=== PATIENT | male | born 1970 | race Caucasian/White ===

== ENCOUNTER 2024-09-18 20:28 | Emergency (ER) | payer BC, SELFPAY ==
[2024-09-18 20:28] VITALS: BMI 30.5
[2024-09-18 20:52] VITALS: BP 149/84; PULSE 102; RESP 18; TEMP 37.2; O2SAT 99
--- NOTE | 2024-09-18 20:57 | XR_ITS ---
Examination: Abdomen sonogram, Limited Date and time of exam: September 18, 2024 2125 hrs. Indications: Right upper abdominal pain and vomiting beginning 2 days ago Technique: Real-time scott scale transabdominal sonographic images of the upper abdomen obtained. Findings: Gallbladder sludge negative for gallstones, negative for cholecystitis Common bile duct 0.22 cm not enlarged, common bile duct measurement is mislabeled on the preliminary film No common bile duct stones Pancreatic head 2.8 cm Liver 17.7 cm lobular contour fatty infiltration no focal liver lesions Normal hepatopedal portal venous flow Patent IVC Impression: Gallbladder sludge, negative for cholelithiasis, negative for cholecystitis Mild hepatomegaly primary hepatocellular disease versus cirrhosis
--- NOTE | 2024-09-18 20:58 | PD.EDRME ---
Rapid Medical Screening Exam RME Arrival date/time: 09/18/24 20:28 54-year-old male presents emergency department complaining of right upper quadrant abdominal pain with nausea and vomiting that is been ongoing since this past Wednesday. Chief Complaint: Abdominal Pain Time Seen by Provider: 09/18/24 20:53 Vital signs: Vital Signs Temperature 98.9 F 09/18/24 20:52 Pulse Rate 102 H 09/18/24 20:52 Respiratory Rate 18 09/18/24 20:52 Blood Pressure 149/84 H 09/18/24 20:52 Pulse Oximetry (%) 99 09/18/24 20:52 Oxygen Delivery Method Room Air 09/18/24 20:52 Vital signs reviewed by provider: Yes
[2024-09-18] MEDS: ONDANSETRON ODT 4 MG TABRAP PO (21:12)
[2024-09-18] MEDS: KETOROLAC INJ 60 MG/2 ML VIAL 30 MG IM (21:12)
[2024-09-18 21:23] LABS: Basophils # (Auto) 0.1 Thou/mm3 (0.0-0.2); Basophils % (Auto) 0 % (0-2.5); Eosinophils # (Auto) 8.1 Thou/mm3 (0.0-0.5); Eosinophils % (Auto) 43 % (0-10); Hematocrit 48.1 % (41.0-53.0); Hemoglobin 16.3 g/dL (13.5-16.0); Immature Granulocytes % (Auto) 1 % (0-0); Immature Granulocytes Auto 0.09 Thou/mm3 (0.00-0.00); Lymphocytes % (Auto) 5 % (10-50); Mean Corpuscular HGB Conc 33.9 g/dl (31.0-37.0); Mean Corpuscular Volume 83 fL (80-100); Monocytes # (Auto) 1.7 Thou/mm3 (0.0-0.8); Monocytes % (Auto) 9 % (0-12); Neutrophils % (Auto) 42 % (37-80); Nucleated Red Blood Cell % 0 /100 WBC (0); Platelet Count 194 Thou/mm3 (140-440); RDW Standard Deviation 40.9 fL (35.1-43.9); Red Blood Count 5.83 Miln/mm3 (4.50-5.90); White Blood Count 18.8 Thou/mm3 (3.8-10.6)
[2024-09-18 21:56] LABS: Alanine Aminotransferase 157 U/L (10-49); Albumin, Serum 4.8 gm/dL (3.5-5.0); Albumin/Globulin Ratio 1.5 (1.2-2.2); Alkaline Phosphatase 151 U/L (46-116); Anion Gap 15 (7-16); Aspartate Amino Transferase 119 U/L (0-34); BUN/Creatinine Ratio 16 Ratio (12-20); Bilirubin,Total 1.5 mg/dL (0.3-1.2); Blood Urea Nitrogen 13 mg/dL (9-23); Calcium 10.1 mg/dL (8.3-10.6); Calcium (Corrected) 10.1 mg/dL (8.5-10.1); Carbon Dioxide 17.7 mMol/L (20.0-31.0); Chloride 103 mMol/L (98-107); Creatinine (Component) 0.8 mg/dL (0.6-1.3); Globulin 3.3 gm/dL (2.3-3.5); Glucose 191 mg/dL (74-106); Lipase 25 U/L (12-53); Osmolality,Calculated 277 (275-295); Potassium 4.1 mMol/L (3.4-5.1); Sodium 136 mMol/L (136-145); Total Protein 8.1 gm/dL (5.7-8.2); eGFR > 60 See Note
[2024-09-18 22:02] LABS: Collection Type, Urine Clean Catch
[2024-09-18 22:09] LABS: Bacteria,Urine Rare; Bilirubin,Urine Negative (Negative); Blood,Urine Negative (Negative); Clarity,Urine Clear (Clear/Hazy); Color,Urine Yellow (Lt Yel-Yel); Culture Indicated,Urine Not Indicated; Glucose, Urine 4+ (Negative); Ketones,Urine 4+ (Negative); Leukocyte Esterase,Urine Negative (Negative); Nitrite,Urine Negative (Negative); Protein,Urine 1+ (Neg - Trace); RBC,Urine 3 /hpf (0-3); Specific Gravity,Urine 1.039 (1.001-1.035); Squamous Epithelial Cell,Urine < 1 /hpf (0-5); Urobilinogen,Urine Negative mg/dL (0.0-1.0); WBC,Urine 3 /hpf (0-5)
--- NOTE | 2024-09-18 22:43 | EDNOTE_ITS ---
ED Abdominal Pain RME/HPI General Chief Complaint: Abdominal Pain Stated complaint: RUQ PAIN Time seen by provider: 09/18/24 20:53 Arrival date/time: 09/18/24 20:28 54-year-old male presents emergency department complaining of right upper quadrant abdominal pain with nausea and vomiting that is been ongoing since this past Wednesday. Patient denies any fever, chills, diarrhea, or any other associated symptom. Source: patient Mode of arrival: ambulatory Limitations: no limitations RME / HPI RME / HPI narrative: 09/18/24 20:28 54-year-old male presents emergency department complaining of right upper quadrant abdominal pain with nausea and vomiting that is been ongoing since this past Wednesday. Related Data Home Medications ?Medication ?Instructions ?Recorded ?Confirmed acetaminophen 325 mg tablet 650 mg PO QID PRN Pain 05/05/24 05/05/24 ascorbic acid (vitamin C) 500 mg 500 mg PO BID 05/05/24 05/05/24 tablet docusate sodium 100 mg capsule 100 mg PO BID 05/05/24 05/05/24 doxycycline hyclate 100 mg capsule 100 mg PO BID 05/05/24 05/05/24 hydrocodone 5 mg-acetaminophen 325 1 tab PO Q6H PRN Pain 05/05/24 05/05/24 mg tablet insulin glargine 100 unit/mL 22 unit subcut QPM 05/05/24 05/05/24 subcutaneous solution insulin lispro 100 unit/mL 5 unit subcut USEASDIRECTD 05/05/24 05/05/24 subcutaneous solution losartan 50 mg tablet 50 mg PO QDAY 05/05/24 05/09/24 metformin 1,000 mg tablet 1,000 mg PO BID 05/05/24 05/05/24 zinc sulfate 220 mg capsule 220 mg PO DAILY 05/05/24 05/05/24 Previous Rx's ?Medication ?Instructions ?Recorded atorvastatin 40 mg tablet 40 mg PO HS 30 days #30 tabs 03/23/24 hydrocodone 5 mg-acetaminophen 325 1 tab PO BID PRN pain #10 tabs 09/18/24 mg tablet ondansetron 4 mg disintegrating 4 mg PO Q8H PRN nausea and 09/18/24 tablet vomiting #10 tabs Allergies Allergy/AdvReac Type Severity Reaction Status Date / Time No Known Allergies Allergy Verified 09/18/24 20:30 Review of Systems Review of Systems Systems Reviewed: All systems reviewed, normal except as documented Constitutional Constitutional: Reports system reviewed and no additional complaints, except as documented, Denies body ache(s), Denies chills and Denies fever(s) Eyes Eyes: Reports system reviewed and no additional complaints, except as documented and Denies change in vision ENT Ears, Nose, Mouth, and Throat: Reports system reviewed and no additional co mplaints, except as documented, Denies disequilibrium, Denies dizziness, Denies sore throat and Denies vertigo Cardiovascular Cardiovascular: Reports system reviewed and no additional complaints, except as documented, Denies chest pain and Denies dyspnea Respiratory Respiratory: Reports system reviewed and no additional complaints, except as documented, Denies chest congestion, Denies cough and Denies dyspnea Gastrointestinal Gastrointestinal: Reports system reviewed and no additional complaints, except as documented, Reports abdominal pain, Reports nausea and Reports vomiting Musculoskeletal Musculoskeletal: Reports system reviewed and no additional complaints, except as documented, Denies abnormal gait and Denies arthralgias Integumentary/Breasts Skin/Breast: Reports system reviewed and no additional complaints, except as documented, Denies erythema, Denies rash and Denies wounds Neurologic Neurologic: Reports system reviewed and no additional complaints, except as documented, Denies abnormal gait, Denies disequilibrium, Denies dizziness and Denies vertigo Past Medical History Past Medical History NEUROLOGIC: Negative Neurological Disorders or Seizures CARDIAC: Positive Cardiac Disorders, Hypercholesterolemia and Hypertension; Negative Congestive Heart Failure RESPIRATORY: Positive Asthma (child); Negative Chronic Obstructive Pulmonary Disease (COPD) GASTROINTESTINAL: Negative Gastrointestinal Disorders or Hepatitis GENITOURINARY: Negative Genitourinary Disorders or Renal Disease ENDOCRINE: Positive Endocrine Disorders and Diabetes Mellitus Type 2; Negative Diabetes Mellitus Type 1 HEMATOLOGIC: Negative Blood Disorders OTHER HISTORY: Positive Hospitalization (surgery, appy), Chicken Pox and Cancer; Negative Autoimmune Disease, Shingles, Blood Transfusions or Anesthesia Reactions Family History FAMILY HISTORY: Positive Family Cardiac Disorders; Negative Family Psychiatric Problems, Family Respiratory Disorders, Family Gastrointestinal Problems, Family Cancer, Family Surgery or Family Anesthesia Reaction Surgical History SURGICAL: Positive Abdominal Surgery Social History SMOKING STATUS: Never smoker SUBSTANCE USE: does not use ED Exam General Limitations: Present no limitations General appearance: Present alert and in no apparent distress Head Head exam: Present atraumatic Eye Eye exam: Present normal appearance, PERRL and EOMI ENT ENT exam: Present normal exam, normal oropharynx and mucous membranes moist Neck Neck exam: Present normal inspection, full ROM and trachea midline Chest Chest inspection: Present normal inspection and symmetric chest wall rise Respiratory Respiratory exam: Present normal lung sounds bilaterally Cardiovascular Cardiovascular exam: Present regular rate, normal rhythm and normal heart sounds Abdominal Exam Abdominal exam: Present soft, tenderness and normal bowel sounds Abdominal tenderness: Present RUQ Extremities Exam Extremities exam: Present normal inspection and full ROM Back Exam Back exam: Present normal inspection and full ROM Neurological Exam Neurological exam: Present alert, oriented X3 and CN II-XII intact Psychiatric Psychiatric exam: Present normal affect and normal mood Skin Skin exam: Present warm, dry, intact and normal color Course Quality Measures none Orders Category Date Time Status US gall bladder Stat Exams 09/18/24 20:57 Completed CBC Stat Lab 09/18/24 21:08 Completed CMP [Comprehensive Metabolic Panel] Stat Lab 09/18/24 21:08 Completed Lipase Stat Lab 09/18/24 21:08 Completed Urinalysis, C/S if Indicated Stat Lab 09/18/24 22:00 Completed Ketorolac Inj [Toradol Inj] Med 09/18/24 20:57 Discontinued 30 mg IM X1 ONE Ondansetron Odt [Zofran Odt] Med 09/18/24 20:57 Discontinued 4 mg PO X1 ONE Vital Signs Vital signs: Vital Signs Temperature 98.9 F 09/18/24 20:52 Pulse Rate 102 H 09/18/24 20:52 Respiratory Rate 18 09/18/24 20:52 Blood Pressure 149/84 H 09/18/24 20:52 Pulse Oximetry (%) 99 09/18/24 20:52 Oxygen Delivery Method Room Air 09/18/24 20:52 99% room air within normal limits Abdominal Pain MDM [facility] Narrative MDM Narrative:: 54-year-old male presents emergency department complaining of right upper quadrant abdominal pain with nausea and vomiting that is been ongoing since this past Wednesday. Patient denies any fever, chills, diarrhea, or any other associated symptom. CBC was remarkable for leukocytosis 18.8. CMP elevated total bili 1.8, AST 119, ALT 157, lipase within normal limits. Ultrasound gallbladder findings: Findings: Gallbladder sludge negative for gallstones, negative for cholecystitis Common bile duct 0.22 cm not enlarged, common bile duct measurement is mislabeled on the preliminary film No common bile duct stones Pancreatic head 2.8 cm Liver 17.7 cm lobular contour fatty infiltration no focal liver lesions Normal hepatopedal portal venous flow Patent IVC Dr. Solis consulted recommends discharging patient and having them follow-up with her in his office for possible surgical intervention on Wednesday. Patient appears nontoxic and is hemodynamically stable. Patient instructed to follow-up with Dr. Solis made aware Dr. Lynne's office will be contacting him for appointment. Patient discharged on pain medication and nausea medication. Patient instructed to return to emergency department immediately for any fever, chills, or any worsening symptoms. Patient data External records reviewed:: [facility] previous records Clinical information provided by:: patient Social determinants that could affect healthcare access:: none Patient has the following chronic illnesses:: See chart How is presenting disease/condition affected by chronic disease/condition?: uneffected by Evaluation data The following diagnostics were reviewed and interpreted by me:: lab results and radiology exam(s) Lab and/or radiology exams considered but not ordered:: Ordered Interpretation Summary: Interpreted by me Medications / Prescriptions Medications or Prescriptions considered but not ordered:: Ordered Medication administrations:: Medication Administration History Discontinued Medications Ketorolac Tromethamine (Ketorolac Inj 60 Mg/2 Ml Vial) 30 mg IM X1 ONE Stop: 09/18/24 20:58 Last Admin: 09/18/24 21:12 Dose: 30 mg Documented By: OA Ondansetron HCl (Ondansetron Odt 4 Mg Tabrap) 4 mg PO X1 ONE; Protocol Stop: 09/18/24 20:58 Last Admin: 09/18/24 21:12 Dose: 4 mg Documented By: OA Given Consultations Consultation(s) initiated? (list below): Yes Consultation #1 (Physician, Specialty, Details): Dr. Solis Diagnosis Differential diagnosis abdominal pain: abdominal pain, acute appendicitis, calculus of kidney, constipation, diverticulitis, endometriosis, gastroenteritis, pancreatitis, small bowel obstruction and other Most likely diagnosis given after review of the tests above:: Gallbladder sludge Admission Indicated Admission indicated?: not indicated Admission Request Was there a request for admission?: No Disposition Plan Disposition Plan: Discharge Discharge Attestation Discharge Attestation: The patient and all family members were given an opportunity to ask questions and understood the discharge instructions. Discharge instructions specifically effects, indications for sooner follow up or return to the emergency department, and the expected course of current diagnosis. Patient condition: Stable Discharge Plan Plan Patient Disposition: HOME (Self Care) Disposition Comment: Stable Prescriptions/Referrals Prescriptions/Med Rec: New hydrocodone-acetaminophen 5-325 mg tablet 1 tab PO BID MDD 2 tabs PRN (Reason: pain) Qty: 10 0RF ondansetron 4 mg tablet,disintegrating 4 mg PO Q8H PRN (Reason: nausea and vomiting) Qty: 10 0RF No Action losartan 50 mg Tablet 50 mg PO QDAY acetaminophen 325 mg Tablet 650 mg PO QID PRN (Reason: Pain) doxycycline hyclate 100 mg Capsule 100 mg PO BID insulin glargine 100 unit/mL Solution 22 unit SUBCUT QPM hydrocodone-acetaminophen 5-325 mg Tablet 1 tab PO Q6H PRN (Reason: Pain) ascorbic acid (vitamin C) 500 mg Tablet 500 mg PO BID metformin 1,000 mg Tablet 1,000 mg PO BID docusate sodium 100 mg Capsule 100 mg PO BID insulin lispro 100 unit/mL Solution 5 unit SUBCUT USEASDIRECTD zinc sulfate 220 mg Capsule 220 mg PO DAILY atorvastatin 40 mg tablet 40 mg PO HS 30 Days Qty: 30 2RF Referrals: Erlinda Solis MD [Physician] - 09/22/24 9:00 am (Dr. Lynne's office will be contacting you for appointment.) Problem List Clinical Impression: Gallbladder sludge Patient/Caregiver Discharge Instructions Additional Instructions: Take medication for pain as needed. Follow-up with Dr. Lynne as discussed and expect phone call from her office. Return to the emergency department for any worsening symptoms or as needed. Print Language: Kyrgyz Stand Alone Forms: Shannan Award Info., Patient Portal Info Letter PA/CLEANER OPERATOR Supervising Physician PA/CLEANER OPERATOR Supervising Physician: Dr. Huber
--- NOTE | 2024-09-19 14:36 | PD.SURCONS ---
HPI Consult details History of present illness: 54M with HLD, DMII who presented to ER with RUQ pain, nausea/vomiting, findings consistent with biliary colic Review of Systems Review of Systems ROS Unobtainable: All systems reviewed & no additional complaints except as documented ENT Ears, Nose, Mouth, and Throat: Denies disequilibrium, Denies dizziness and Denies vertigo Musculoskeletal Musculoskeletal: Denies abnormal gait Neurologic Neurologic: Reports system reviewed and no additional complaints, except as documented, Denies abnormal gait, Denies disequilibrium, Denies dizziness and Denies vertigo Meds Home Medications and Allergies Home Medications ?Medication ?Instructions ?Recorded ?Confirmed ?Type acetaminophen 325 mg tablet 650 mg PO QID PRN Pain 05/05/24 05/05/24 History ascorbic acid (vitamin C) 500 mg 500 mg PO BID 05/05/24 05/05/24 History tablet docusate sodium 100 mg capsule 100 mg PO BID 05/05/24 05/05/24 History doxycycline hyclate 100 mg capsule 100 mg PO BID 05/05/24 05/05/24 History hydrocodone 5 mg-acetaminophen 325 1 tab PO Q6H PRN Pain 05/05/24 05/05/24 History mg tablet insulin glargine 100 unit/mL 22 unit subcut QPM 05/05/24 05/05/24 History subcutaneous solution insulin lispro 100 unit/mL 5 unit subcut USEASDIRECTD 05/05/24 05/05/24 History subcutaneous solution losartan 50 mg tablet 50 mg PO QDAY 05/05/24 05/09/24 History metformin 1,000 mg tablet 1,000 mg PO BID 05/05/24 05/05/24 History zinc sulfate 220 mg capsule 220 mg PO DAILY 05/05/24 05/05/24 History Allergies Allergy/AdvReac Type Severity Reaction Status Date / Time No Known Allergies Allergy Verified 09/18/24 20:30 Exam Vital Signs Temp Pulse Resp BP Pulse Ox O2 Del Method 98.9 F 102 H 18 149/84 H 99 Room Air 09/18/24 20:52 09/18/24 20:52 09/18/24 20:52 09/18/24 20:52 09/18/24 20:52 09/18/24 20:52 Constitutional Constitutional: no acute distress Routine Respiratory Exam Respiratory: Present no resp distress Routine Abdominal Exam Abdominal: Present soft; Absent tenderness or distended Results Results: Laboratory Laboratory results: results reviewed Results: Imaging US - abdomen: report reviewed Assessment & Plan Plan 54M with HTN, DMII presenting with signs and symptoms and biliary colic Follow up as outpt
== END 2024-09-18 23:55 | disposition home or self-care (01) ==
LOC: SERX 09-19 01:06
PROVIDERS: Emergency Provider Emergency Medicine; PCP Physician Assistant
DX: K82.8 Other specified diseases of gallbladder (principal)
CPT/HCPCS: 36415; 76705; 80053; 81001; 83690; 85025; 96372; 99284; J1885; Q0162

== ENCOUNTER 2024-09-20 13:38 | Outpatient (AMB) | payer BC, SELFPAY ==
[2024-09-20 13:55] VITALS: BP 98/66; PULSE 89; RESP 18; TEMP 36.3; O2SAT 98; BMI 30.8
--- NOTE | 2024-09-20 13:55 | GSCOFFNT_ITS ---
Vital Signs - [facility] 09/20/24 13:55 Height 1.83 m Height Method Stated Weight 103.192 kg Weight Measurement Method Standing Scale BMI 30.8 BP 98/66 Blood Pressure Source Automatic Cuff Blood Pressure Location Right Upper Arm Position Sitting Respiration 18 Pulse 89 Pulse Source Monitor Temp 97.4 F Temp Source Temporal Artery Scan Pulse Oximetry (%) 98 Oxygen Delivery Method Room Air Med/Allergies Allergies & Medications Allergies No Known Allergies Allergy (Verified 09/20/24 13:56) Medication Reconciliation atorvastatin 40 mg tablet 40 mg PO HS 30 days #30 tabs 03/23/24 [Rx Confirmed 09/20/24] acetaminophen 325 mg tablet 650 mg PO QID PRN Pain 05/05/24 [History Confirmed 09/20/24] ascorbic acid (vitamin C) 500 mg tablet 500 mg PO BID 05/05/24 [History Confirmed 09/20/24] docusate sodium 100 mg capsule 100 mg PO BID 05/05/24 [History Confirmed 09/20/24] doxycycline hyclate 100 mg capsule 100 mg PO BID 05/05/24 [History Confirmed 09/20/24] hydrocodone 5 mg-acetaminophen 325 mg tablet 1 tab PO Q6H PRN Pain 05/05/24 [History Confirmed 09/20/24] insulin glargine 100 unit/mL subcutaneous solution 22 unit subcut QPM 05/05/24 [History Confirmed 09/20/24] insulin lispro 100 unit/mL subcutaneous solution 5 unit subcut USEASDIRECTD 05/05/24 [History Confirmed 09/20/24] losartan 50 mg tablet 50 mg PO QDAY 05/05/24 [History Confirmed 09/20/24] metformin 1,000 mg tablet 1,000 mg PO BID 05/05/24 [History Confirmed 09/20/24] zinc sulfate 220 mg capsule 220 mg PO DAILY 05/05/24 [History Confirmed 09/20/24] hydrocodone 5 mg-acetaminophen 325 mg tablet 1 tab PO BID PRN pain #10 tabs 09/18/24 [Rx Confirmed 09/20/24] ondansetron 4 mg disintegrating tablet 4 mg PO Q8H PRN nausea and vomiting #10 tabs 09/18/24 [Rx Confirmed 09/20/24] ibuprofen 800 mg tablet 800 mg PO Q8H PRN pain #30 tabs 09/20/24 [Rx] MA Intake Visit Data Collection New Patient or Established: Established Patient (seen at [facility] within 3 years) Reason for Visit:: ER FOLLOW UP Pain Present Currently: Yes Pain Location: Abdomen Pain scale:: 7 Pain Scale Used: [employer]arker/Numerical Bench Hand Machine Required: No PCP or OBGYN visit in last 3 months: Yes Hx Now: No Do You Feel Safe at Home: Yes Authorities Contacted: N/A Smoking Status Smoking Status: Never smoker Immunization / Flu Flu Vaccine in the Last 12 Months: No Flu Vaccine Exclusion Criteria: No Exclusion Criteria Past Medical History Past Medical History NEUROLOGIC: Negative Neurological Disorders or Seizures CARDIAC: Positive Cardiac Disorders, Hypercholesterolemia and Hypertension; Negative Congestive Heart Failure RESPIRATORY: Positive Asthma (child); Negative Chronic Obstructive Pulmonary Disease (COPD) GASTROINTESTINAL: Negative Gastrointestinal Disorders or Hepatitis GENITOURINARY: Negative Genitourinary Disorders or Renal Disease ENDOCRINE: Positive Endocrine Disorders and Diabetes Mellitus Type 2; Negative Diabetes Mellitus Type 1 HEMATOLOGIC: Negative Blood Disorders OTHER HISTORY: Positive Hospitalization (surgery, appy), Chicken Pox and Cancer; Negative Autoimmune Disease, Shingles, Blood Transfusions or Anesthesia Reactions Family History FAMILY HISTORY: Positive Family Cardiac Disorders; Negative Family Psychiatric Problems, Family Respiratory Disorders, Family Gastrointestinal Problems, Family Cancer, Family Surgery or Family Anesthesia Reaction Surgical History SURGICAL: Positive Abdominal Surgery Social History SMOKING STATUS: Smoking status: Never smoker ALCOHOL: Alcohol Intake: Never HOUSING: Housing: Long-Term LIVES WITH: Lives With: Alone HPI HPI Narrative 54M referred from ER for symptomatic cholelithiasis. Pt reports pain began the d ay before presentation and has decreased somewhat but has not fully abated; he states it is severe in the RUQ and associated with nausea and anorexia, feeling similar to when he had appendicitis in 2015. Workup in ER consistent with biliary colic with no signs of cholecystitis PMH: HTN, HLD, DMII, BCC of back PSHx: Appendectomy, toe amputations, removal of SCC of back and skin graft Meds: No antiplt or anticoagulation Allergies: NKDA Social hx: Nonsmoker ROS Review of Systems Systems Reviewed: All systems reviewed, normal except as documented Objective/Exam General General Appearance: alert, cooperative and well groomed Resp Respiratory exam: Absent respiratory distress Abdominal Abdominal exam: Present soft; Absent distention or tenderness Results Labs, US reviewed Assessment & Plan Diagnosis / Problem List (1) Symptomatic cholelithiasis: Status: Acute Assessment & Plan: 54M with HTN, HLD, DMII presenting with signs and symptoms of symptomatic cholelithiasis. I explained benefits/risks of surgery including need for conversion to open, bleeding, infection, hernia, and injury to nearby structures requiring further procedures or surgery (which would require transfer to another hospital). Pt expressed understanding and agrees to proceed Office Procedures GNS Level of Care Nursing/Assessment Patient Status: Established Patient Nursing Assessment/Reassesment: Medication Reconciliation, Update PMH in EMR and Vital Signs Coordination of Care: Complex Care and Chronic Disease 1-5, Education Complex Pt/Fam, Consent,records obtained, informed consent, 1 Ins Authorization, Results/Orders obtained and Staff clarify orders Established Patient Charge Established Patient Point Assignment: 110 Established Patient Point Charge: EP Level 3 (80-115) Patient Portal Questionaires Social History Living Situation History Housing: Long-Term Tobacco History Smoking Status: Never smoker Alcohol History Alcohol Intake: Never Domestic Abuse History Do You Feel Safe at Home: Yes Review of Systems Report any current symptoms Only answer those that you have currently: Past Medical History Past Medical History Have you ever been diagnosed with any of the following: Neurological Problems Seizures: No Cardiology Problems Hypercholesterolemia: Yes Congestive Heart Failure: No Hypertension: Yes Respiratory Problems Chronic Obstructive Pulmonary Disease (COPD): No Asthma: Yes (child) Stomache/Intestinal Problems Hepatitis: No Genital/Urinary Problems Renal Disease: No Endocrine Problems Diabetes Mellitus Type 1: No Diabetes Mellitus Type 2: Yes Other Problems Hospitalization: Yes (surgery, appy) Autoimmune Disease: No Shingles: No Blood Transfusions: No Anesthesia Reactions: No Chicken Pox: Yes Cancer: Yes
== END 2024-09-20 14:13 | disposition home or self-care (01) ==
LOC: HODSRG 13:38
PROVIDERS: PCP Physician Assistant; Referring Provider Physician Assistant; Supervising Provider Surgery; Visit Provider Surgery
DX: K80.20 Calculus of gallbladder without cholecystitis without obstruction (principal)
CPT/HCPCS: 99213; G0463

== ENCOUNTER 2024-09-22 13:49 | Inpatient (IN) | payer BC, SELFPAY ==
[2024-09-22 13:58] VITALS: BP 118/72; PULSE 95; RESP 20; TEMP 36.6; O2SAT 97; BMI 29.8
--- NOTE | 2024-09-22 14:05 | PD.EDABDPN ---
ED Abdominal Pain RME/HPI General Chief Complaint: Recheck/Abnormal Lab/Rx Stated complaint: WBC's are high, sent by Dr Solis Time seen by provider: 09/22/24 13:58 Arrival date/time: 09/22/24 13:49 Source: patient, RN notes reviewed and old records reviewed Mode of arrival: ambulatory Limitations: no limitations RME / HPI RME / HPI narrative: 54yom presents to ED for 6-day history of RUQ abdominal pain. Patient was evaluated in ED at symptom onset, diagnosed with gallbladder sludge and referred to general surgery. Patient saw Dr. Solis in clinic 09/20. Surgery was tentatively scheduled for Wednesday however, repeat labs this morning showed persistent leukocytosis, wbc 18.3 (wbc 18.8 on 09/18). Dr. Solis referred to ED for possible admit and gilmer this weekend. Patient reports mild pain at this time. No vomiting the past 5 days, no diarrhea the past 4 days. No fever, sob or cp reported. Related Data Home Medications ?Medication ?Instructions ?Recorded ?Confirmed ascorbic acid (vitamin C) 500 mg 500 mg PO BID 05/05/24 09/22/24 tablet losartan 50 mg tablet 50 mg PO QDAY 05/05/24 09/22/24 metformin 1,000 mg tablet 1,000 mg PO BID 05/05/24 09/22/24 zinc sulfate 220 mg capsule 220 mg PO DAILY 05/05/24 09/22/24 empagliflozin 25 mg tablet 25 mg PO QAM 09/22/24 09/22/24 (Jardiance) Previous Rx's ?Medication ?Instructions ?Recorded atorvastatin 40 mg tablet 40 mg PO HS 30 days #30 tabs 03/23/24 ibuprofen 800 mg tablet 800 mg PO Q8H PRN pain #30 tabs 09/20/24 Allergies Allergy/AdvReac Type Severity Reaction Status Date / Time No Known Allergies Allergy Verified 09/22/24 11:01 Review of Systems Review of Systems Systems Reviewed: All systems reviewed, normal except as documented Constitutional Constitutional: Denies chills and Denies fever(s) Cardiovascular Cardiovascular: Denies chest pain and Denies dyspnea Respiratory Respiratory: Denies dyspnea Gastrointestinal Gastrointestinal: Reports abdominal pain, Denies loose stools, Reports nausea and Denies vomiting Past Medical History Past Medical History NEUROLOGIC: Negative Neurological Disorders or Seizures CARDIAC: Positive Cardiac Disorders, Hypercholesterolemia and Hypertension; Negative Congestive Heart Failure RESPIRATORY: Positive Asthma (child); Negative Chronic Obstructive Pulmonary Disease (COPD) GASTROINTESTINAL: Negative Gastrointestinal Disorders or Hepatitis GENITOURINARY: Negative Genitourinary Disorders or Renal Disease ENDOCRINE: Positive Endocrine Disorders and Diabetes Mellitus Type 2; Negative Diabetes Mellitus Type 1 HEMATOLOGIC: Negative Blood Disorders OTHER HISTORY: Positive Hospitalization (surgery, appy), Chicken Pox and Cancer; Negative Autoimmune Disease, Shingles, Blood Transfusions or Anesthesia Reactions Family History FAMILY HISTORY: Positive Family Cardiac Disorders; Negative Family Psychiatric Problems, Family Respiratory Disorders, Family Gastrointestinal Problems, Family Cancer, Family Surgery or Family Anesthesia Reaction Surgical History SURGICAL: Positive Abdominal Surgery Social History SMOKING STATUS: Never smoker SUBSTANCE USE: does not use ED Exam General Limitations: Present no limitations General appearance: Present alert and in no apparent distress Head Head exam: Present atraumatic and normocephalic Eye Eye exam: Present normal appearance, PERRL and EOMI ENT ENT exam: Present normal exam and mucous membranes moist Neck Neck exam: Present normal inspection and full ROM Chest Chest inspection: Present normal inspection and symmetric chest wall rise Respiratory Respiratory exam: Present normal lung sounds bilaterally; Absent respiratory distress Cardiovascular Cardiovascular exam: Present regular rate and normal rhythm Abdominal Exam Abdominal exam: Present soft and tenderness (Mild, RUQ); Absent distention, guarding or rebound Extremities Exam Extremities exam: Present normal inspection and full ROM Back Exam Back exam: Absent CVA tenderness (R) or CVA tenderness (L) Neurological Exam Neurological exam: Present alert and oriented X3 Psychiatric Psychiatric exam: Present normal affect and normal mood Skin Skin exam: Present warm, dry, intact and normal color Course Course Course Narrative: 1400: Spoke to Dr. Lynne. Requests repeat ultrasound to rule out cholecystitis. Most likely will need hydration and gilmer this weekend. 1548: Dr. Solis updated on GB ultrasound. Requests admission to general surgery service, plan for gilmer. No antibiotics requested at this time. Quality Measures none Orders Category Date Time Status COVID-19 Screening Questionnaire NOW Care 09/22/24 15:50 Active Decision to Admit X1 Care 09/22/24 15:50 Active Consult to General Surgery Stat Cons 09/22/24 15:50 Ordered US gall bladder Stat Exams 09/22/24 14:06 Completed Sodium Chloride 0.9% 1000 ml [Ns] 1,000 ml Med 09/22/24 14:06 Discontinued IV 999 mls/hr Vital Signs Vital signs: Vital Signs Temperature 97.9 F 09/22/24 13:58 Pulse Rate 95 09/22/24 13:58 Respiratory Rate 20 09/22/24 13:58 Blood Pressure 118/72 09/22/24 13:58 Pulse Oximetry (%) 97 09/22/24 13:58 Oxygen Delivery Method Room Air 09/22/24 13:58 Abdominal Pain MDM MDM Narrative MDM Narrative:: 54yom presents to ED for 6-day history of RUQ abdominal pain. Patient was evaluated in ED at symptom onset, diagnosed with gallbladder sludge and referred to general surgery. Patient saw Dr. Solis in clinic 09/20. Surgery was tentatively scheduled for Wednesday however, repeat labs this morning showed persistent leukocytosis, wbc 18.3 (wbc 18.8 on 09/18). Dr. Solis referred to ED for possible admit and gilmer this weekend. Patient reports mild pain at this time. No vomiting the past 5 days, no diarrhea the past 4 days. No fever, sob or cp reported. Dr. Solis to admit for gilmer. Patient updated on plan of care. Patient data External records reviewed:: [facility] previous records (ED visit 09/18/2024 for abdominal pain) Clinical information provided by:: patient Social determinants that could affect healthcare access:: none Patient has the following chronic illnesses:: Hypertension, diabetes How is presenting disease/condition affected by chronic disease/condition?: uneffected by Evaluation data The following diagnostics were reviewed and interpreted by me:: radiology exam(s) Lab and/or radiology exams considered but not ordered:: CBC, CMP, lipase: Labs from this morning were reviewed Interpretation Summary: Gallbladder US: no gallstones per my read Medications / Prescriptions Medications or Prescriptions considered but not ordered:: No antibiotics recommended at this time Medication administrations:: Medication Administration History Acetaminophen (Acetaminophen 325 Mg Tablet) 650 mg PO Q6H PRN PRN Reason: PAIN SCALE 1-3 (mild Stop: 10/22/24 16:08 Sodium Chloride (Ns) 1,000 mls @ 75 mls/hr IV .[id number] CHIQUI Stop: 10/22/24 16:14 Last Admin: 09/22/24 16:52 Dose: 75 mls/hr Documented By: FC Ketorolac Tromethamine (Ketorolac Inj 30 Mg/Ml Vial) 15 mg IVP Q6H PRN PRN Reason: PAIN SCALE 4-6 (Moderate Stop: 09/27/24 16:08 Ondansetron HCl (Ondansetron Inj 2 Mg/Ml Inj 2 Ml) 4 mg IV Q6H PRN; Protocol PRN Reason: NAUSEA OR VOMITING Stop: 10/22/24 16:14 Discontinued Medications Sodium Chloride (Ns) 1,000 mls @ 999 mls/hr IV .Q1H1M ONE Stop: 09/22/24 15:06 Last Infusion: 09/22/24 16:44 Dose: Infused Documented By: Admin: 09/22/24 15:35 Dose: 999 mls/hr Documented By: AM Potassium Chloride (Potassium Chloride 20 Meq Tabcr) 40 meq PO X1 ONE Stop: 09/22/24 16:13 Last Admin: 09/22/24 16:51 Dose: 40 meq Documented By: FC Above medication administered in ED Consultations Consultation(s) initiated? (list below): Yes Consultation #1 (Physician, Specialty, Details): General surgery: Dr. Solis Diagnosis Differential diagnosis abdominal pain: other (Cholelithiasis, cholecystitis, retained stone, gallbladder sludge, biliary colic) Most likely diagnosis given after review of the tests above:: Biliary colic Admission Indicated Admission indicated?: indicated Admission Request Was there a request for admission?: Yes Admission Attestation Admission request attestation: Discussed case with [] from Hospitalist service regarding admission. Discussed patients ED course, exam findings, labs, and radiology results. The Hospitalist [agrees,declines] to accept the patient for admission. Disposition Plan Disposition Plan: Admit Discharge Plan Plan Patient Disposition: Admit Acute Care w/in Hospital Patient condition on transfer: Stable Problem List Clinical Impression: Biliary colic NOEMI Supervising Physician NOEMI Supervising Physician: Kaycee
--- NOTE | 2024-09-22 14:06 | XR_ITS ---
Examination: Abdomen sonogram, Limited Date and time of exam: September 22, 2024 1453 hours INDICATIONS: Onset right upper abdominal pain beginning one week ago Technique: Real-time scott scale transabdominal sonographic images of the upper abdomen obtained. Findings: Negative for gallstones Gallbladder wall 0.40 cm no edema Common bile duct 0.3 cm Pancreatic head 2.2 cm Hepatomegaly 18.6 cm fatty infiltration mildly irregular contour no focal liver lesions Normal hepatopedal portal venous flow Patent IVC IMPRESSION: Negative for cholelithiasis Gallbladder wall 6.40 cm, consider HIDA scan or MRCP follow-up as clinically warranted Moderate hepatomegaly fatty infiltration, suspect primary hepatocellular disease, no focal liver lesions
[2024-09-22] MEDS: SODIUM CHLORIDE 0.9% 1000 ML 1,000 ML 999 ML IV (15:35)
[2024-09-22 16:07] VITALS: BP 146/80; PULSE 87; RESP 18; TEMP 36.7; O2SAT 99
[2024-09-22] MEDS: POTASSIUM CHLORIDE 20 mEq TABCR 40 MEQ PO (16:51)
[2024-09-22] MEDS: SODIUM CHLORIDE 0.9% 1000 ML 1,000 ML 75 ML IV (16:52)
--- NOTE | 2024-09-22 17:57 | PC.NURSE ---
REPORT GIVEN TO JAMESON VEGAS
[2024-09-22 18:17] VITALS: BMI 29.8
--- NOTE | 2024-09-22 19:35 | PD.SURHP ---
HPI Date of Admission 09/22/24 16:09 HPI 54M recently referred to me for symptomatic cholelithiasis, plan for laparoscopic cholecystectomy 09/25 however at preop testing patient was noted to appear unwell with abnormal electrolytes consistent with dehydration. Patient reports that the pain has been persistent and he has not been able to eat or drink normally. Workup shows WBC 18, potassium 3.3, BUN 33, with no stones on current ultrasound but mild gallbladder wall thickening PMH: HTN, HLD, DMII, BCC of back PSHx: Appendectomy, toe amputations, removal of SCC of back and skin graft Meds: No antiplt or anticoagulation Allergies: NKDA Social hx: Nonsmoker Review of Systems Review of Systems ROS Unobtainable: All systems reviewed & no additional complaints except as documented Meds Home Medications and Allergies Home Medications ?Medication ?Instructions ?Recorded ?Confirmed ?Type ascorbic acid (vitamin C) 500 mg 500 mg PO BID 05/05/24 09/22/24 History tablet losartan 50 mg tablet 50 mg PO QDAY 05/05/24 09/22/24 History metformin 1,000 mg tablet 1,000 mg PO BID 05/05/24 09/22/24 History zinc sulfate 220 mg capsule 220 mg PO DAILY 05/05/24 09/22/24 History empagliflozin 25 mg tablet 25 mg PO QAM 09/22/24 09/22/24 History (Jardiance) Allergies Allergy/AdvReac Type Severity Reaction Status Date / Time No Known Allergies Allergy Verified 09/22/24 11:01 Exam Vital Signs Temp Pulse Resp BP Pulse Ox O2 Del Method 98.1 F 87 18 146/80 H 99 Room Air 09/22/24 16:07 09/22/24 16:07 09/22/24 16:07 09/22/24 16:07 09/22/24 16:07 09/22/24 16:07 Constitutional Constitutional: no acute distress Routine Respiratory Exam Respiratory: Present no resp distress Routine Abdominal Exam Abdominal: Present soft and tenderness (Mild right upper quadrant tenderness); Absent distended or rebound Results Results: Laboratory Laboratory results: results reviewed Results: Imaging CT scan - abdomen: report reviewed and image reviewed Assessment & Plan Plan 54M with HTN, HLD, DM and recently diagnosed symptomatic cholelithiasis admitted for dehydration. Pending improvement in electrolytes will plan on cholecystectomy this admission Quality Measures Quality Measures none
[2024-09-22 20:00] VITALS: BP 144/80; PULSE 87; RESP 18; TEMP 36.2; O2SAT 97
[2024-09-23] VITALS (7 sets, daily range): BP systolic 94–140; BP diastolic 54–79; PULSE 77–87; RESP 14–18; TEMP 36.3–37; O2SAT 95–97
--- NOTE | 2024-09-23 00:50 | PC.NURSE ---
Unable to complete medication reconciliation due patient not having list of meds and is not able to recall dosage of each medication that he takes.
[2024-09-23 06:20] LABS: Basophils # (Auto) 0.1 Thou/mm3 (0.0-0.2); Basophils % (Auto) 1 % (0-2.5); Eosinophils # (Auto) 0.1 Thou/mm3 (0.0-0.5); Eosinophils % (Auto) 1 % (0-10); Hematocrit 39.4 % (41.0-53.0); Hemoglobin 13.7 g/dL (13.5-16.0); Immature Granulocytes % (Auto) 2 % (0-0); Immature Granulocytes Auto 0.33 Thou/mm3 (0.00-0.00); Lymphocytes # (Auto) 1.2 Thou/mm3 (1.0-4.8); Lymphocytes % (Auto) 8 % (10-50); Mean Corpuscular HGB Conc 34.8 g/dl (31.0-37.0); Mean Corpuscular Volume 80 fL (80-100); Monocytes # (Auto) 1.9 Thou/mm3 (0.0-0.8); Monocytes % (Auto) 12 % (0-12); Neutrophils # (Auto) 12.7 Thou/mm3 (1.8-7.7); Neutrophils % (Auto) 78 % (37-80); Nucleated Red Blood Cell % 0 /100 WBC (0); Platelet Count 215 Thou/mm3 (140-440); RDW Standard Deviation 41.9 fL (35.1-43.9); White Blood Count 16.3 Thou/mm3 (3.8-10.6)
[2024-09-23] MEDS: SODIUM CHLORIDE 0.9% 1000 ML 1,000 ML 75 ML IV (06:22)
[2024-09-23 06:38] LABS: Glucose Estimated Average 137 mg/dL (80-131); Hemoglobin A1C 6.4 % Hgb (4.8-6.0)
[2024-09-23 06:47] LABS: Alanine Aminotransferase 107 U/L (10-49); Albumin, Serum 3.8 gm/dL (3.5-5.0); Albumin/Globulin Ratio 1.5 (1.2-2.2); Alkaline Phosphatase 303 U/L (46-116); Anion Gap 13 (7-16); Aspartate Amino Transferase 64 U/L (0-34); BUN/Creatinine Ratio 23 Ratio (12-20); Bilirubin,Total 0.8 mg/dL (0.3-1.2); Blood Urea Nitrogen 18 mg/dL (9-23); C-Reactive Protein 22.7 mg/dL (0.0-0.9); Calcium 8.6 mg/dL (8.3-10.6); Calcium (Corrected) 8.8 mg/dL (8.5-10.1); Carbon Dioxide 17.1 mMol/L (20.0-31.0); Chloride 102 mMol/L (98-107); Creatinine (Component) 0.8 mg/dL (0.6-1.3); Estimated Creatinine Clearance 127.6 mL/min (>60); Globulin 2.6 gm/dL (2.3-3.5); Glucose 109 mg/dL (74-106); Lipase 33 U/L (12-53); Magnesium 2.3 mg/dL (1.6-2.6); Osmolality,Calculated 267 (275-295); Phosphorous 1.6 mg/dL (2.4-5.1); Potassium 3.2 mMol/L (3.4-5.1); Procalcitonin 1.22 ng/ml (0.0-0.49); Sodium 132 mMol/L (136-145); Thyroid Stimulating Hormone 1.26 uIU/mL (0.55-4.78); Total Protein 6.4 gm/dL (5.7-8.2); eGFR > 60 See Note
[2024-09-23 08:32] LABS: INR 1.1 (0.9-1.3); Partial Thromboplastin Time 32.1 Seconds (22.0-36.0); Prothrombin Time 12.1 Seconds (9.0-12.2)
--- NOTE | 2024-09-23 09:47 | XR_ITS ---
Examination: CT abdomen with intravenous contrast CT pelvis with intravenous contrast 2-D coronal reconstructions 2-D sagittal reconstructions Date and time of exam:September 23, 2024 1015 hrs. Comparison May 30, 2015 Indications: Right upper abdominal pain with diarrhea beginning one week ago. CTDI: vol (mGy) 11.2 DLP: (mGycm) 755 Technique: Multiple axial sections of the abdomen and pelvis have been obtained. 64 slice high-resolution scanner used. 3 mm axial sections have been obtained, post intravenous injection 70 cc [id number] 2-D sagittal, coronal reconstructions obtained. Low dose protocols were performed. One or more of the following dose reduction techniques were used; automated exposure control, adjustment of the mA and/or KV according to patient size, use of iterative reconstruction technique. Findings: Moderate hepatomegaly, liver irregular in contour with fatty infiltration Distended gallbladder with gallbladder wall thickening and marked edema pericholecystic inflammatory change Portosystemic collateral vessels medial to the spleen No pancreatic mass No adrenal mass No hydronephrosis Diffuse wall thickening involving the colon, hepatic colopathy pattern Aorta normal size No bowel obstruction Large amounts of stool in the rectosigmoid with thickening of the rectal wall Mild prostatomegaly No bladder mass Fat-containing inguinal hernias Severe osteopenia Impression: Cirrhosis Acute acalculous cholecystitis, suggest HIDA scan or MRCP follow-up Diffuse colitis, likely hepatic colopathy Large amounts of stool in the rectosigmoid with thickening the rectal wall which may relate to proctitis pattern
--- NOTE | 2024-09-23 09:47 | XR_ITS ---
Examination: AP chest single view Technique one AP portable upright chest single view Exam date and time: September 23, 2024 1133 hrs. Comparison March 18, 2024 Indications: Coughing congestion this week Findings: Normal heart size. Lungs are clear. Osseous structures are intact Impression: No active disease
--- NOTE | 2024-09-23 09:48 | EKG_ITS ---
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
[2024-09-23] MEDS: POT PHOS 15 mMol in NS 250 ML 15 MMOL/250 ML BAG 62.5 MMOL IV ×2 (09:58→15:04)
[2024-09-23] MEDS: KETOROLAC INJ 30 MG/ML VIAL 15 MG IVP ×3 (11:21→23:40)
[2024-09-23] MEDS: INSULIN LISPRO (AdmeLOG) 1 UNIT/0.01 ML UNIT SC ×3 (11:36→21:47)
[2024-09-23] MEDS: CIPROFLOXACIN/D5w 400 MG IVPB 400 MG/200 ML BAG 200 MG IV ×2 (13:12→21:47)
[2024-09-23] MEDS: metroNIDAZOLE/NS 500 MG IVPB 500 MG/100 ML BAG 200 MG IV ×2 (13:12→22:59)
--- NOTE | 2024-09-23 15:28 | PD.SURPROG ---
Documentation for date of: 09/23/24 Subjective Subjective Brief History: 54M recently referred to me for symptomatic cholelithiasis, plan for laparoscopic cholecystectomy 09/25 however at preop testing patient was noted to appear unwell with abnormal electrolytes consistent with dehydration. Patient reports that the pain has been persistent and he has not been able to eat or drink normally. Workup shows WBC 18, potassium 3.3, BUN 33, with no stones on current ultrasound but mild gallbladder wall thickening PMH: HTN, HLD, DMII, BCC of back PSHx: Appendectomy, toe amputations, removal of SCC of back and skin graft Meds: No antiplt or anticoagulation Allergies: NKDA Social hx: Nonsmoker Narrative: Feeling better today with less pain, no nausea, had a BM which was somewhat loose. WBC 16 from 18, CRP and procal elevated, CT showing sequelae of cirrhosis including acalculous cholecystitis and hepatic colopathy Regarding these findings pt confirms he does not drink alcohol, states that he has been taking atorvastatin since 03/2024 with no changes in dose and he has not had any other medication changes recently. He does not have any risk factors for hepatitis, serologies are pending Exam Vital Signs Temp Pulse Resp BP Pulse Ox O2 Del Method 97.5 F 82 14 136/79 H 96 Room Air 09/23/24 12:00 09/23/24 12:00 09/23/24 12:00 09/23/24 12:00 09/23/24 12:00 09/23/24 12:00 Constitutional Constitutional: no acute distress Routine Respiratory Exam Respiratory: Present no resp distress Routine Abdominal Exam Abdominal: Present soft; Absent tenderness or distended Results Results: Laboratory Laboratory results: results reviewed Results: Imaging CT scan - abdomen: report reviewed and image reviewed Assessment & Plan Plan 54M initially referred for symptomatic cholelithiasis, admitted 09/22 after preop labs were concerning for dehydration. Yesterday pt and I spoke about cholecystectomy however given the severity of his symptoms and electrolyte abnormalities I ultimately decided to pursue further workup before proceeding with surgery. CT is indicative of cirrhosis, so I explained that we should hold off on surgery for now as his gallbladder findings appear more to be secondary to cirrhosis rather than a primary problem, and pt is not having symptoms of cholecystitis. I will consult Hepatology Appreciate GI recommendations Holding atorvastatin Cipro/flagyl for cholecystitis/colitis Trend labs
--- NOTE | 2024-09-23 19:21 | PD.IMCONS ---
HPI Data of Consult Requesting Physician: Erlinda Solis MD Primary Care Provider: WILLIAM Quintero Consult Narrative Reason for consult: Cirrhosis of uncertain etiology History of present illness: 54 years old male I been consulted for evaluation of cirrhosis of the liver Patient had a gallbladder ultrasound done on 09/18/2024 which showed no cholelithiasis but thickening of the gallbladder wall to 6.4 mm fatty liver and hepatomegaly CT scan of the abdomen pelvis showed acute acalculous cholecystitis large stool in the rectosigmoid region and cirrhotic liver disease cc:: cc: Erlinda Solis MD Review of Systems Review of Systems Systems Reviewed: All systems reviewed, normal except as documented Past Medical History Surgical History OTHER SURGICAL HX: Diabetes mellitus type 2 Essential hypertension Appendectomy 2 amputation Removal of SCC from the back requiring skin graft Meds Home Medications and Allergies Home Medications ?Medication ?Instructions ?Recorded ?Confirmed ?Type losartan 50 mg tablet 50 mg PO QDAY 05/05/24 09/23/24 History metformin 1,000 mg tablet 1,000 mg PO QDAY 05/05/24 09/23/24 History empagliflozin 25 mg tablet 10 mg PO QAM 09/22/24 09/23/24 History (Jardiance) Allergies Allergy/AdvReac Type Severity Reaction Status Date / Time No Known Allergies Allergy Verified 09/22/24 11:01 Exam Vital Signs Temp Pulse Resp BP Pulse Ox O2 Del Method 97.6 F 77 18 117/61 97 Room Air 09/23/24 16:00 09/23/24 16:00 09/23/24 16:00 09/23/24 16:00 09/23/24 16:00 09/23/24 16:00 Constitutional Comments: Alert oriented Routine Respiratory Exam Comments: Normal to auscultation Routine Abdominal Exam Comments: Midepigastric tenderness Results Labs 09/23/24 05:59 09/23/24 05:59 Labs: Short CBC 09/23/24 Range/Units 05:59 WBC 16.3 H (3.8-10.6) Thou/mm3 Hgb 13.7 D (13.5-16.0) g/dL Hct 39.4 L (41.0-53.0) % Plt Count 215 D (140-440) Thou/mm3 BMP 09/23/24 05:59 Sodium 132 L Potassium 3.2 L Chloride 102 Carbon Dioxide 17.1 L BUN 18 Creatinine 0.8 Glucose 109 H D Calcium 8.6 Liver Function 09/23/24 Range/Units 05:59 Total Bilirubin 0.8 (0.3-1.2) mg/dL AST 64 H (0-34) U/L ALT 107 H (10-49) U/L Alkaline Phosphatase 303 H D (46-116) U/L Albumin 3.8 D (3.5-5.0) gm/dL Assessment and Plan Additional Assessment & Plan Additional Plan: # Chronic liver disease leading to cirrhosis on the LFTs it appears to be well compensated as a total bilirubin 0.9 AST ALT 64 and 107 and mildly elevated alk phos of 303 Platelet count also remains reasonably well at 215 Etiology could be MCNALLY cirrhosis versus cryptogenic and there is not much history of alcohol consumption in the past he does drink socially. There Complete workup for the chronic active hepatitis leading to cirrhosis has been ordered by me And I will follow the patient with you
--- NOTE | 2024-09-23 19:30 | PC.NURSE ---
Dr. Hassan in to see patient.
[2024-09-23 19:56] LABS: Iron 55 mcg/dL (65-175); Percent Iron Saturation 28 % (20-55); Total Iron Binding Capacity 190 mcg/dL (250-425); Unsaturated Iron Binding 135 (225-295)
[2024-09-23] MEDS: LACTOBACILLUS RHAMNOSUS 1 CAP PO (20:00)
[2024-09-24] VITALS: BP 107/57; PULSE 75; RESP 20; TEMP 36.7; O2SAT 95
[2024-09-24 04:00] VITALS: BP 120/70; PULSE 69; RESP 18; TEMP 36.7; O2SAT 95
[2024-09-24] MEDS: metroNIDAZOLE/NS 500 MG IVPB 500 MG/100 ML BAG 200 MG IV (05:18)
[2024-09-24] MEDS: KETOROLAC INJ 30 MG/ML VIAL 15 MG IVP ×2 (05:40→14:38)
[2024-09-24 05:53] LABS: Basophils # (Auto) 0.1 Thou/mm3 (0.0-0.2); Basophils % (Auto) 0 % (0-2.5); Eosinophils # (Auto) 0.2 Thou/mm3 (0.0-0.5); Eosinophils % (Auto) 1 % (0-10); Hematocrit 37.9 % (41.0-53.0); Hemoglobin 13.2 g/dL (13.5-16.0); Immature Granulocytes % (Auto) 5 % (0-0); Immature Granulocytes Auto 0.54 Thou/mm3 (0.00-0.00); Lymphocytes # (Auto) 1.1 Thou/mm3 (1.0-4.8); Lymphocytes % (Auto) 9 % (10-50); Mean Corpuscular HGB Conc 34.8 g/dl (31.0-37.0); Mean Corpuscular Hemoglobin 27.6 pg (25.0-35.0); Mean Corpuscular Volume 79 fL (80-100); Monocytes # (Auto) 1.6 Thou/mm3 (0.0-0.8); Monocytes % (Auto) 13 % (0-12); Neutrophils # (Auto) 8.7 Thou/mm3 (1.8-7.7); Neutrophils % (Auto) 72 % (37-80); Nucleated Red Blood Cell % 0 /100 WBC (0); Platelet Count 239 Thou/mm3 (140-440); RDW Standard Deviation 40.7 fL (35.1-43.9); Red Blood Count 4.78 Miln/mm3 (4.50-5.90); White Blood Count 12.1 Thou/mm3 (3.8-10.6)
[2024-09-24 06:11] LABS: Alanine Aminotransferase 96 U/L (10-49); Albumin, Serum 3.6 gm/dL (3.5-5.0); Albumin/Globulin Ratio 1.4 (1.2-2.2); Alkaline Phosphatase 294 U/L (46-116); Anion Gap 8 (7-16); Aspartate Amino Transferase 73 U/L (0-34); BUN/Creatinine Ratio 22 Ratio (12-20); Bilirubin,Total 0.7 mg/dL (0.3-1.2); Blood Urea Nitrogen 13 mg/dL (9-23); Calcium 8.3 mg/dL (8.3-10.6); Calcium (Corrected) 8.6 mg/dL (8.5-10.1); Carbon Dioxide 22.7 mMol/L (20.0-31.0); Chloride 103 mMol/L (98-107); Creatinine (Component) 0.6 mg/dL (0.6-1.3); Estimated Creatinine Clearance 170.1 mL/min (>60); Globulin 2.6 gm/dL (2.3-3.5); Glucose 164 mg/dL (74-106); Magnesium 2.3 mg/dL (1.6-2.6); Osmolality,Calculated 272 (275-295); Phosphorous 1.4 mg/dL (2.4-5.1); Potassium 2.8 mMol/L (3.4-5.1); Sodium 134 mMol/L (136-145); Total Protein 6.2 gm/dL (5.7-8.2); eGFR > 60 See Note
[2024-09-24 07:45] VITALS: BP 127/59; PULSE 67; RESP 16; TEMP 36.4; O2SAT 96
[2024-09-24] MEDS: INSULIN LISPRO (AdmeLOG) 1 UNIT/0.01 ML UNIT SC ×2 (07:51→11:49)
[2024-09-24 09:23] VITALS: BP 127/59; PULSE 67
[2024-09-24] MEDS: CIPROFLOXACIN/D5w 400 MG IVPB 400 MG/200 ML BAG 200 MG IV (09:23)
[2024-09-24] MEDS: LOSARTAN POTASSIUM 25 MG TABLET 50 MG PO (09:23)
[2024-09-24] MEDS: LACTOBACILLUS RHAMNOSUS 1 CAP PO (09:23)
[2024-09-24] MEDS: POTASSIUM CHLORIDE 20 mEq TABCR 40 MEQ PO ×2 (09:32→15:32)
[2024-09-24] MEDS: POT PHOS 15 mMol in NS 250 ML 15 MMOL/250 ML BAG 62.5 MMOL IV ×2 (10:33→14:38)
--- NOTE | 2024-09-24 11:13 | PC.SS ---
Wiley Hendricks is a 54-year-old male admitted [place] for Lap [place] [id number]. SS conducted bedside contact with the patient to complete initial assessment and to discuss discharge planning. Patient confirmed demographic information. Patient identifies his brother Lion Hendricks [phone] as his surrogate decision maker. Patient resides at home alone. Pt states he is able to complete all ADL?s independently, no need for any source of DME. Pts PCP is Dr. Jefe Grubbs (last visit in Aug) and pharmacy of choice is [facility]. DC option discussed and pt wishes to return home. Pt has his own vehicle for DC. 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 DC Plan: Home Contact: Lion Hendricks [phone] (Brother) PCP: Romie
[2024-09-24 12:00] VITALS: BP 141/76; PULSE 73; RESP 16; TEMP 36.6; O2SAT 96
--- NOTE | 2024-09-24 15:02 | PD.SURPROG ---
Documentation for date of: 09/24/24 Subjective Subjective Brief History: 54M recently referred to me for symptomatic cholelithiasis, plan for laparoscopic cholecystectomy 09/25 however at preop testing patient was noted to appear unwell with abnormal electrolytes consistent with dehydration. Patient reports that the pain has been persistent and he has not been able to eat or drink normally. Workup shows WBC 18, potassium 3.3, BUN 33, with no stones on current ultrasound but mild gallbladder wall thickening PMH: HTN, HLD, DMII, BCC of back PSHx: Appendectomy, toe amputations, removal of SCC of back and skin graft Meds: No antiplt or anticoagulation Allergies: NKDA Social hx: Nonsmoker Narrative: Having mild pain, no nausea, remaining afebrile, WBC downtrending, labs ordered by GI are pending Exam Vital Signs Temp Pulse Resp BP Pulse Ox O2 Del Method 97.9 F 73 16 141/76 H 96 Room Air 09/24/24 12:00 09/24/24 12:00 09/24/24 12:00 09/24/24 12:00 09/24/24 12:00 09/24/24 12:00 Constitutional Constitutional: no acute distress Routine Respiratory Exam Respiratory: Present no resp distress Results Results: Laboratory Laboratory results: results reviewed Assessment & Plan Plan 54M initially referred for symptomatic cholelithiasis, admitted 09/22 after preop labs were concerning for dehydration. Yesterday pt and I spoke about cholecystectomy however given the severity of his symptoms and electrolyte abnormalities I ultimately decided to pursue further workup which has been significant for findings of cirrhosis GI labs pending
--- NOTE | 2024-09-24 15:03 | PD.SURDS ---
Planned Discharge Date 09/24/24 DS: Providers Provider Date of admission: 09/22/24 16:09 Primary care physician: WILLIAM Quintero Admitting Provider: Erlinda Solis MD Attending Provider on Admission: Erlinda Solis MD Consults: 09/22/24 15:50 Consult to General Surgery Stat Comment: Consulting Provider: Erlinda Solis 09/23/24 14:40 Consult to Gastroenterology Routine Comment: Eval cirrhosis Consulting Provider: Cherelle Hassan Attending Provider on DC: Erlinda Solis MD Discharging Provider: Erlinda Solis MD Diagnosis Discharge Diagnosis (1) Cirrhosis of liver not due to alcohol: Status: Acute Problem List Completed Was Problem List Reviewed/Reconciled?: Yes Hospital Course Brief History: 54M recently referred to me for symptomatic cholelithiasis, plan for laparoscopic cholecystectomy 09/25 however at preop testing patient was noted to appear unwell with abnormal electrolytes consistent with dehydration. Patient reports that the pain has been persistent and he has not been able to eat or drink normally. Workup shows WBC 18, potassium 3.3, BUN 33, with no stones on current ultrasound but mild gallbladder wall thickening PMH: HTN, HLD, DMII, BCC of back PSHx: Appendectomy, toe amputations, removal of SCC of back and skin graft Meds: No antiplt or anticoagulation Allergies: NKDA Social hx: Nonsmoker Pt was admitted for dehydration and further workup which revealed signs of mild cirrhosis. Pt has recovered well overall and is now appropriate for discharge home with plan to follow up with PCP and GI Exam Vital Signs Temp Pulse Resp BP Pulse Ox O2 Del Method 97.9 F 73 16 141/76 H 96 Room Air 09/24/24 12:00 09/24/24 12:00 09/24/24 12:00 09/24/24 12:00 09/24/24 12:00 09/24/24 12:00 Constitutional Constitutional: no acute distress Routine Respiratory Exam Respiratory: Present no resp distress Routine Abdominal Exam Abdominal: Present soft; Absent tenderness or distended Discharge Plan Plan Patient Disposition: HOME (Self Care) Patient condition on transfer: Stable Prescriptions/Referrals Prescriptions/Med Rec: New ciprofloxacin HCl [Cipro] 500 mg tablet 500 mg PO Q12H Qty: 14 0RF metronidazole 500 mg tablet 500 mg PO Q8H Qty: 21 0RF Continued losartan 50 mg Tablet 50 mg PO QDAY metformin 1,000 mg Tablet 1,000 mg PO QDAY Jardiance 25 mg Tablet 10 mg PO QAM Held atorvastatin 40 mg tablet 40 mg PO HS 30 Days Qty: 30 2RF Hold Instructions: Resume on 10/16/24. Follow up with PCP to determine if you should continue or switch to another medication Referrals: Jefe Grubbs FNP [Primary Care Provider] - (Please make an appt within 1-2 weeks to discuss your cholesterol medication and referral to GI) Cherelle Hassan MD [Physician] - (Please request referral from your PCP to Dr Hassan to follow up on liver studies) Erlinda Solis MD [Physician] - (You will receive a phone call to confirm a follow-up appt with me in 3 weeks) Patient/Caregiver Discharge Instructions Education Materials: Understanding Cirrhosis Print Language: [place] Citizen Stand Alone Forms: Shannan Award Info., Patient Portal Info Letter Discharge Order Discharge Orders: Discharge (Routine); Ordered 09/24/24 Ordered By: Erlinda Solis Results Results: Laboratory Laboratory results: results reviewed Results: Imaging CT scan - abdomen: report reviewed and image reviewed US - abdomen: report reviewed
--- NOTE | 2024-09-24 15:23 | PD.IMPROG ---
Documentation for date of: 09/24/24 Subjective Subjective Interval history: Okay to discharge patient home I will follow-up on the labs as an outpatient and will see the patient in follow-up Exam Vital Signs Temp Pulse Resp BP Pulse Ox O2 Del Method 97.9 F 73 16 141/76 H 96 Room Air 09/24/24 12:00 09/24/24 12:00 09/24/24 12:00 09/24/24 12:00 09/24/24 12:00 09/24/24 12:00 Objective Labs 09/24/24 05:28 09/24/24 05:28 Labs: Laboratory Results - last 24 hr 09/23/24 09/24/24 05:59 05:28 WBC 12.1 H RBC 4.78 Hgb 13.2 L Hct 37.9 L MCV 79 L MCH 27.6 MCHC 34.8 RDW Std Deviation 40.7 Plt Count 239 Neut % (Auto) 72 Lymph % (Auto) 9 L Anderson % (Auto) 13 H Eos % (Auto) 1 Baso % (Auto) 0 Neut # (Auto) 8.7 H Lymph # (Auto) 1.1 Anderson # (Auto) 1.6 H Eos # (Auto) 0.2 Baso # (Auto) 0.1 Immature Gran # (Auto) 0.54 H Absolute Nucleated RBC 0.00 Immature Gran % 5 H Nucleated RBC % 0 Sodium 134 L Potassium 2.8 L Chloride 103 Carbon Dioxide 22.7 Anion Gap 8 BUN 13 Creatinine 0.6 Estim Creat Clear Calc 170.1 eGFR > 60 BUN/Creatinine Ratio 22 H Glucose 164 H D Calculated Osmolality 272 L Calcium 8.3 Corrected Calcium 8.6 Phosphorus 1.4 L Magnesium 2.3 Iron 55 L TIBC 190 L Iron Saturation 28 Unsat Iron Binding 135 L Total Bilirubin 0.7 AST 73 H ALT 96 H Alkaline Phosphatase 294 H Total Protein 6.2 Albumin 3.6 Globulin 2.6 Albumin/Globulin Ratio 1.4 Impressions Impression: # Chronic liver disease leading to cirrhosis of uncertain etiology most likely cryptogenic cirrhosis versus MCNALLY cirrhosis Outpatient follow-up Assessment & Plan A&P Narrative # Chronic liver disease leading to cirrhosis on the LFTs it appears to be well compensated as a total bilirubin 0.9 AST ALT 64 and 107 and mildly elevated alk phos of 303 Platelet count also remains reasonably well at 215 Etiology could be MCNALLY cirrhosis versus cryptogenic and there is not much history of alcohol consumption in the past he does drink socially. There Complete workup for the chronic active hepatitis leading to cirrhosis has been ordered by me And I will follow the patient with you Time Spent With Patient Time: Total time spent is greater than 50% in coordination of care (as documented) at patient's floor/unit and/or counseling patient:
[2024-09-24 16:00] VITALS: BP 141/76; PULSE 84; RESP 16; TEMP 37.2; O2SAT 96
--- NOTE | 2024-09-24 16:13 | PC.SS ---
Rounding: IV ABX trending labs
[2024-09-25 04:04] LABS: Hepatitis A Antibody IgM Non Reactive (Non React); Hepatitis B Core Antibody IgM Non Reactive (Non React); Hepatitis B Surface Antigen Non Reactive (Non React); Hepatitis C Antibody Non Reactive (Non React)
[2024-10-03 06:44] LABS: ANA Screen, IFA NEGATIVE (NEGATIVE); Alpha-1-Antitrypsin* 318 mg/dL (83-199); Ceruloplasmin* 29 mg/dL (14-30); Copper* 131 mcg/dL (70-175); Mitochondrial Ab NEGATIVE (NEGATIVE)
== END 2024-09-24 16:55 | disposition home or self-care (01) | DRG 641 ==
LOC: SERX 15:50 → SERHOLD 16:40 → S3SX 18:11
PROVIDERS: Specialist; Admitting Provider Surgery; Emergency Provider Emergency Medicine; PCP Nurse Practitioner Family; Visit Provider Surgery
DX: E86.0 Dehydration (principal); K80.00 Calculus of gallbladder with acute cholecystitis without obstruction; E11.9 Type 2 diabetes mellitus without complications; E78.5 Hyperlipidemia, unspecified; I10 Essential (primary) hypertension; K74.60 Unspecified cirrhosis of liver
CPT/HCPCS: 36415; 71045; 74177; 76705; 80053; 80074; 82103; 82390; 82525; 83036; 83540; 83550; 83690; 83735; 84100; 84145; 84443; 85025; 85610; 85730; 86038; 86140; 86255; 87040; 93005; 99285; A4649; J0744; J1815; J1885; J3490; J7030; J7999; Q9967; A9270; J1836

== ENCOUNTER → 2024-09-22 | Outpatient (CLI) | payer BC, SELFPAY ==
[2024-09-22 11:04] VITALS: BMI 29.8
[2024-09-22 11:50] LABS: Basophils # (Auto) 0.1 Thou/mm3 (0.0-0.2); Basophils % (Auto) 0 % (0-2.5); Eosinophils # (Auto) 0.1 Thou/mm3 (0.0-0.5); Eosinophils % (Auto) 0 % (0-10); Hematocrit 44.4 % (41.0-53.0); Hemoglobin 15.7 g/dL (13.5-16.0); Immature Granulocytes % (Auto) 1 % (0-0); Immature Granulocytes Auto 0.18 Thou/mm3 (0.00-0.00); Lymphocytes # (Auto) 0.6 Thou/mm3 (1.0-4.8); Lymphocytes % (Auto) 4 % (10-50); Mean Corpuscular HGB Conc 35.4 g/dl (31.0-37.0); Mean Corpuscular Hemoglobin 28.3 pg (25.0-35.0); Mean Corpuscular Volume 80 fL (80-100); Monocytes # (Auto) 1.9 Thou/mm3 (0.0-0.8); Monocytes % (Auto) 10 % (0-12); Neutrophils # (Auto) 15.6 Thou/mm3 (1.8-7.7); Neutrophils % (Auto) 85 % (37-80); Nucleated Red Blood Cell % 0 /100 WBC (0); Platelet Count 296 Thou/mm3 (140-440); RDW Standard Deviation 41.3 fL (35.1-43.9); Red Blood Count 5.54 Miln/mm3 (4.50-5.90); White Blood Count 18.3 Thou/mm3 (3.8-10.6)
[2024-09-22 11:59] LABS: Alanine Aminotransferase 150 U/L (10-49); Albumin, Serum 4.5 gm/dL (3.5-5.0); Albumin/Globulin Ratio 1.5 (1.2-2.2); Alkaline Phosphatase 335 U/L (46-116); Anion Gap 15 (7-16); Aspartate Amino Transferase 51 U/L (0-34); BUN/Creatinine Ratio 30 Ratio (12-20); Bilirubin,Total 0.8 mg/dL (0.3-1.2); Blood Urea Nitrogen 33 mg/dL (9-23); Carbon Dioxide 18.3 mMol/L (20.0-31.0); Chloride 98 mMol/L (98-107); Creatinine (Component) 1.1 mg/dL (0.6-1.3); Estimated Creatinine Clearance 92.8 mL/min (>60); Glucose 250 mg/dL (74-106); Osmolality,Calculated 277 (275-295); Potassium 3.3 mMol/L (3.4-5.1); Sodium 131 mMol/L (136-145); Total Protein 7.5 gm/dL (5.7-8.2); eGFR > 60 See Note
[2024-09-22 12:00] LABS: INR 1.1 (0.9-1.3); Partial Thromboplastin Time 30.5 Seconds (22.0-36.0); Prothrombin Time 12.2 Seconds (9.0-12.2)
--- NOTE | 2024-09-22 12:20 | SUR.PREOP ---
CBC and CMP results reported to Dr Will Dr stated she will contact pt to go ER.
--- NOTE | 2024-09-22 13:54 | SUR.PREOP ---
Contacted pt, informed him to go ER per Dr Solis request, abnormal CBC, CMP.
== END | disposition home or self-care (01) ==
LOC: SLAB 09-26 06:33
PROVIDERS: Anesthesiology; PCP Family Medicine; Referring Provider Surgery; Visit Provider Surgery
DX: Z01.812 Encounter for preprocedural laboratory examination (principal)
CPT/HCPCS: 36415; 80053; 85025; 85610; 85730

== ENCOUNTER 2024-10-16 12:54 | Outpatient (AMB) | payer BC, SELFPAY ==
[2024-10-16 13:10] VITALS: BP 106/74; PULSE 102; RESP 18; TEMP 36.9; O2SAT 97; BMI 30.1
--- NOTE | 2024-10-16 13:10 | PD.GSCLVISIT ---
Vital Signs - [facility] 10/16/24 13:10 Height 1.83 m Height Method Stated Weight 100.783 kg Weight Measurement Method Standing Scale BMI 30.1 BP 106/74 Blood Pressure Source Automatic Cuff Blood Pressure Location Left Upper Arm Position Sitting Respiration 18 Pulse 102 H Pulse Source Monitor Temp 98.5 F Temp Source Temporal Artery Scan Pulse Oximetry (%) 97 Oxygen Delivery Method Room Air Med/Allergies Allergies & Medications Allergies No Known Allergies Allergy (Verified 10/16/24 13:11) Medication Reconciliation atorvastatin 40 mg tablet 40 mg PO HS 30 days #30 tabs 03/23/24 [Rx Confirmed 10/16/24] losartan 50 mg tablet 50 mg PO QDAY 05/05/24 [History Confirmed 10/16/24] metformin 1,000 mg tablet 1,000 mg PO QDAY 05/05/24 [History Confirmed 10/16/24] empagliflozin 25 mg tablet (Jardiance) 10 mg PO QAM 09/22/24 [History Confirmed 10/16/24] ciprofloxacin HCl 500 mg tablet (Cipro) 500 mg PO Q12H #14 tabs 09/24/24 [Rx Confirmed 10/16/24] metronidazole 500 mg tablet 500 mg PO Q8H #21 tabs 09/24/24 [Rx Confirmed 10/16/24] MA Intake Visit Data Collection New Patient or Established: Established Patient (seen at [facility] within 3 years) Seen by Clinical Staff ONLY (RN/MA): No Reason for Visit:: FOLLOW UP MARIA TERESA Pain Present Currently: No 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: No PCP or OBGYN visit in last 3 months: Yes Hx Now: No Do You Feel Safe at Home: Yes Authorities Contacted: N/A Smoking Status Smoking Status: Never smoker Immunization / Flu Flu Vaccine in the Last 12 Months: No Flu Vaccine Exclusion Criteria: No Exclusion Criteria Past Medical History Past Medical History NEUROLOGIC: Negative Neurological Disorders or Seizures CARDIAC: Positive Hypercholesterolemia and Hypertension; Negative Cardiac Disorders or Congestive Heart Failure RESPIRATORY: Negative Chronic Obstructive Pulmonary Disease (COPD) or Asthma GASTROINTESTINAL: Positive Gall Bladder Disease; Negative Gastrointestinal Disorders or Hepatitis GENITOURINARY: Negative Genitourinary Disorders or Renal Disease ENT: Negative Cataracts ENDOCRINE: Positive Endocrine Disorders and Diabetes Mellitus Type 2 (pt take jardiance and metformin last doese taken 09/23/2024 at 08:00); Negative Diabetes Mellitus Type 1 HEMATOLOGIC: Negative Blood Disorders or Sickle Cell Disease OTHER HISTORY: Positive Hospitalization, Chicken Pox and Cancer; Negative Autoimmune Disease, Shingles, Blood Transfusions, Anesthesia Reactions, Organ Transplant, MRSA, VRSA or Vancomycin-Resistant Enterococci Family History FAMILY HISTORY: Positive Family Cardiac Disorders; Negative Family Psychiatric Problems, Family Respiratory Disorders, Family Gastrointestinal Problems, Family Cancer, Family Surgery or Family Anesthesia Reaction Surgical History SURGICAL: Negative Organ Transplant Social History SMOKING STATUS: Smoking status: Never smoker ALCOHOL: Alcohol Intake: Never HOUSING: Housing: House LIVES WITH: Lives With: Alone HPI HPI Narrative 54M who had initially been referred for cholelithiasis, was planned for surgery however developed worsening pain with findings indicative of cirrhosis and associated colitis, here for planned follow up. Pt had been admitted for cirrhosis workup and was discharged with PO abx for colitis; he completed them and today reports feeling much better with little to no pain, his appetite has returned and he is having normal bowel function. The inpatient workup for cirrhosis was negative for any contributing factors such as hepatitis, copper, and A1AT; as of now the only possible culprit is atorvastatin which pt has not resumed. He has followed up with PCP who agreed with holding atorvastatin for now ROS Constitutional Constitutional: Reports system reviewed and no additional complaints, except as documented Objective/Exam General General Appearance: alert, cooperative and well groomed Resp Respiratory exam: Absent respiratory distress Results Lab results from previous hospitalization reviewed Assessment & Plan Diagnosis / Problem List (1) Cirrhosis of liver not due to alcohol: Status: Acute Assessment & Plan: 54M who had initially been referred for cholelithiasis, was planned for surgery however developed worsening pain with findings indicative of mild cirrhosis, recovering well clinically. I advised pt to continue follow up with his PCP for HLD management as well as monitoring of his liver function. All questions were answered and pt is encouraged to reach out if needed Office Procedures GNS Level of Care Nursing/Assessment Patient Status: Established Patient Nursing Assessment/Reassesment: Medication Reconciliation and Update PMH in EMR Coordination of Care: Complex Care and Chronic Disease 1-5, Consent,records obtained, informed consent, Education Simp Pt/Fam, 1 Ins Authorization, Results/Orders obtained and Staff clarify orders Established Patient Charge Established Patient Point Assignment: 90 Established Patient Point Charge: EP Level 3 (80-115) Patient Portal Questionaires Social History Living Situation History Housing: House Tobacco History Smoking Status: Never smoker Alcohol History Alcohol Intake: Never Domestic Abuse History Do You Feel Safe at Home: Yes Review of Systems Report any current symptoms Only answer those that you have currently: Past Medical History Past Medical History Have you ever been diagnosed with any of the following: Neurological Problems Seizures: No Cardiology Problems Hypercholesterolemia: Yes Congestive Heart Failure: No Hypertension: Yes Respiratory Problems Chronic Obstructive Pulmonary Disease (COPD): No Asthma: No Stomache/Intestinal Problems Hepatitis: No Gall Bladder Disease: Yes Genital/Urinary Problems Renal Disease: No Head,Eye,Nose,Throat Problems Cataracts: No Endocrine Problems Diabetes Mellitus Type 1: No Diabetes Mellitus Type 2: Yes (pt take jardiance and metformin last doese taken 09/23/2024 at 08:00) Blood Problems Sickle Cell Disease: No Other Problems Hospitalization: Yes Autoimmune Disease: No Shingles: No Blood Transfusions: No Anesthesia Reactions: No Organ Transplant: No MRSA: No VRSA: No Vancomycin-Resistant Enterococci: No Chicken Pox: Yes Cancer: Yes
== END 2024-10-16 13:24 | disposition home or self-care (01) ==
LOC: HODSRG 12:54
PROVIDERS: PCP Nurse Practitioner Family; Referring Provider Nurse Practitioner Family; Supervising Provider Surgery; Visit Provider Surgery
DX: K74.60 Unspecified cirrhosis of liver (principal); K80.20 Calculus of gallbladder without cholecystitis without obstruction
CPT/HCPCS: 99213; G0463

== ENCOUNTER 2024-12-08 09:10 | Day surgery (SDC) | payer BC, SELFPAY ==
[2024-12-07 11:53] VITALS: BMI 29.8
[2024-12-08] VITALS (13 sets, daily range): BP systolic 110–143; BP diastolic 69–98; PULSE 71–85; RESP 14–20; TEMP 36.6–37; O2SAT 96–100; BMI 29.4
[2024-12-08] MEDS: SODIUM CHLORIDE 0.9% 500 ML 500 ML 20 ML IV (11:04)
[2024-12-08] MEDS: ONDANSETRON INJ 2 MG/ML INJ 2 ML 4 MG IV (11:05)
[2024-12-08] MEDS: DiphenhydrAMINE INJ 50 MG/ML VIAL 25 MG IV (11:05)
[2024-12-08] MEDS: fentaNYL CIT INJ 50 mCg/ML AMP 2ML (ASD USE ONLY) IV (11:08)
[2024-12-08] MEDS: MEPERIDINE INJ 25 MG/ML VIAL (ASD USE ONLY) 50 MG IV (11:22)
[2024-12-08] MEDS: MIDAZOLAM INJ 1 MG/ML VIAL 2 ML (ASD USE ONLY) 2 MG IV (11:22)
== END 2024-12-08 12:32 | disposition home or self-care (01) ==
PROVIDERS: PCP Nurse Practitioner Family; Referring Provider Specialist; Visit Provider Specialist
PROC: 0DBE8ZX Excision of Large Intestine, Via Natural or Artificial Opening Endoscopic, Diagnostic (ICD-10-PCS; CPT 45380; principal; 2024-12-08 09:45)
PROC: (CPT 43239; 2024-12-08 09:45)
DX: K63.89 Other specified diseases of intestine (principal); K72.10 Chronic hepatic failure without coma; K62.89 Other specified diseases of anus and rectum; K64.9 Unspecified hemorrhoids; K57.30 Diverticulosis of large intestine without perforation or abscess without bleeding; K29.50 Unspecified chronic gastritis without bleeding; K20.90 Esophagitis, unspecified without bleeding; K62.1 Rectal polyp; I10 Essential (primary) hypertension; Z79.899 Other long term (current) drug therapy; E11.9 Type 2 diabetes mellitus without complications
CPT/HCPCS: 45380; 45385; A4649; J1200; J2175; J2250; J2405; J3010; J7040

== ENCOUNTER 2025-01-26 09:48 | Outpatient (RCR) | payer BC, SELFPAY ==
--- NOTE | 2025-01-26 10:00 | XR_ITS ---
Examination: EDWIGEA, hepatobiliary radioisotope scan Date and time of exam: January 26, 2025 0939 hours INDICATIONS: Sharp right upper abdominal pain September 2024, distended gallbladder with gallbladder wall thickening on CT abdomen September 23, 2024 Technique: 6.0 mCi of 99M Hepatolite administered. Serial imaging then obtained from immediate through 60 minutes. Findings: Radioisotope activity within the liver is reasonably homogenous. No gallbladder activity There is common bile duct small bowel activity noted Impression: Negative for gallbladder activity, consistent with cystic duct obstruction
== END 2025-01-31 23:59 | disposition home or self-care (01) ==
LOC: SNUC 09:48
PROVIDERS: PCP Nurse Practitioner Family; Referring Provider Specialist; Visit Provider Specialist
DX: R10.9 Unspecified abdominal pain (principal)
CPT/HCPCS: 78227; A9537

== ENCOUNTER 2025-05-31 06:15 | Day surgery (SDC) | payer BC, SELFPAY ==
--- NOTE | 2025-05-28 06:32 | EKG_ITS ---
[facility] Test Date: 2025-05-28 Pat Name: ERIN JACKSON Department: Room: - Gender: Male Smearer: AIDAN : 1970 Requested By: Maureen Lazo Order Number: [id number] Reading MD: Maureen Lazo Measurements Intervals Parker Rate: 77 P: 49 FL: 152 QRS: -62 QRSD: 109 T: 58 QT: 370 QTc: 420 Interpretive Statements SINUS RHYTHM S1-S2-S3 PATTERN, CONSISTENT WITH PULMONARY DISEASE, RVH, OR NORMAL VARIANT PATTERN CONSISTENT WITH PULMONARY DISEASE LEFT ANTERIOR FASCICULAR BLOCK [QRS AXIS <= -45, QR IN I, RS IN II] Compared to ECG 09/23/2024 11:11:44 Right ventricular hypertrophy now present /store/S0/[id number]/[id number].pdf
[2025-05-28 08:01] VITALS: BMI 30.8
[2025-05-28 09:48] LABS: Basophils # (Auto) 0.1 Thou/mm3 (0.0-0.2); Basophils % (Auto) 1 % (0-2.5); Eosinophils # (Auto) 0.5 Thou/mm3 (0.0-0.5); Eosinophils % (Auto) 6 % (0-10); Hematocrit 50.4 % (41.0-53.0); Hemoglobin 17.0 g/dL (13.5-16.0); Immature Granulocytes Auto 0.02 Thou/mm3 (0.00-0.00); Lymphocytes # (Auto) 2.6 Thou/mm3 (1.0-4.8); Lymphocytes % (Auto) 34 % (10-50); Mean Corpuscular HGB Conc 33.7 g/dl (31.0-37.0); Mean Corpuscular Hemoglobin 28.6 pg (25.0-35.0); Mean Corpuscular Volume 85 fL (80-100); Monocytes # (Auto) 0.7 Thou/mm3 (0.0-0.8); Monocytes % (Auto) 9 % (0-12); Neutrophils # (Auto) 3.9 Thou/mm3 (1.8-7.7); Neutrophils % (Auto) 51 % (37-80); Nucleated Red Blood Cell # 0.00 Thou/mm3 (0.00-0.00); Nucleated Red Blood Cell % 0 /100 WBC (0); Platelet Count 224 Thou/mm3 (140-440); RDW Standard Deviation 38.5 fL (35.1-43.9); Red Blood Count 5.94 Miln/mm3 (4.50-5.90); White Blood Count 7.7 Thou/mm3 (3.8-10.6)
[2025-05-28 10:00] LABS: Alanine Aminotransferase 18 U/L (10-49); Albumin, Serum 4.6 gm/dL (3.5-5.0); Albumin/Globulin Ratio 1.6 (1.2-2.2); Alkaline Phosphatase 71 U/L (46-116); Anion Gap 11 (7-16); Aspartate Amino Transferase 19 U/L (0-34); BUN/Creatinine Ratio 23 Ratio (12-20); Bilirubin,Total 0.8 mg/dL (0.3-1.2); Blood Urea Nitrogen 18 mg/dL (9-23); Calcium 10.8 mg/dL (8.3-10.6); Calcium (Corrected) 10.8 mg/dL (8.5-10.1); Carbon Dioxide 26.1 mMol/L (20.0-31.0); Chloride 103 mMol/L (98-107); Creatinine (Component) 0.8 mg/dL (0.6-1.3); Estimated Creatinine Clearance 129.6 mL/min (>60); Globulin 2.9 gm/dL (2.3-3.5); Glucose 144 mg/dL (74-106); Osmolality,Calculated 284 (275-295); Potassium 4.5 mMol/L (3.4-5.1); Sodium 140 mMol/L (136-145); Total Protein 7.5 gm/dL (5.7-8.2); eGFR > 60 See Note
[2025-05-31] VITALS (8 sets, daily range): BP systolic 116–139; BP diastolic 69–82; PULSE 68–72; RESP 12–20; TEMP 36.3–36.7; O2SAT 96–100; BMI 30.5
--- NOTE | 2025-05-31 09:49 | PD.SUROPNT ---
Date of Procedure 05/31/25 Pre Op Diagnosis Chronic cholecystitis Post Op Diagnosis Gangrenous cholecystitis Procedure Laparoscopic cholecystectomy Findings Distended and thick-walled gallbladder with dense adhesions Procedure Description Patient was brought into the operating room in supine position. After administration of general endotracheal anesthesia abdomen was prepped and draped in standard surgical manner. A Veress needle was inserted through the umbilicus and pneumoperitoneum was obtained up to 15 mmHg. The Veress needle was then removed, a 5 mm infraumbilical incision was made and the 5mm trocar was inserted. Laparoscopic camera was placed. Under direct visualization a laparoscopic camera a 10 mm trocar was placed in subxiphoid and two 5 mm trocars placed in right upper quadrant. There were adhesions of omentum into the inferior aspect of the liver and the gallbladder. The adhesions were divided with electrocautery. The gallbladder was identified and was noted to be moderately distended with significant gallbladder wall thickening and gangrenous in appearance. The gallbladder was decompressed with an aspirator. It was retracted cephalad and laterally. Dissection started near the infundibulum of gallbladder where cystic duct and gallbladder junction clearly identified, there were significant dense adhesions. The cystic duct was circumferentially dissected off the peritoneum and surrounding inflammatory tissue. The critical view of safety was clearly demonstrated. Cystic duct was then divided between 2 endoclips proximally and one distally. The cystic artery was similarly dissected and divided. The gallbladder was then from the liver bed using electrocautery. The gallbladder was then placed inside an Endo Catch and removed from the abdomen utilizing subxiphoid trocar site. The area was copiously and thoroughly washed and irrigated, all the fluid was suctioned and the suction fluid returned clear. Hemostasis achieved using electrocautery, also topical hemostatic agent using snow Surgicel placed at the gallbladder fossa to further assure hemostasis. Endoclips noted be in place and intact without any bleeding or any leakage. Hemostasis was adequate and satisfactory. The subxiphoid trocar sites fascial defect was closed with 0 Vicryl using Endo Closure device. Instruments and trocars removed, pneumoperitoneum was evacuated and the incisions closed with 4-0 Monocryl in subcuticular fashion. Instrument needle and sponge counts were all reported to be correct X2. Patient tolerated the procedure well, was extubated, breathing spontaneously and without difficulty and was transferred to postanesthesia care in stable condition. Anesthesia GETA and local Pathology / specimen Other (Gallbladder) Estimated Blood Loss 25 Condition Stable Disposition PACU Surgeon Maureen Lazo MD Surgical Staff Operation Date: 05/31/25 08:30 Case Staff Anesthesiologist: Michael Chavarria RN First Assistant: Vilma Sarmiento
--- NOTE | 2025-05-31 10:03 | SUR.PHASEI ---
1003: Pt. wakes to name then drifts back to sleep, vitals stable, breathing unlabored, no complaint of pain or nausea, x4 dermabond sites to ABD CDI, no active bleed noted, report received from MD Chavarria and Sylvia BARBA.
--- NOTE | 2025-05-31 11:15 | SUR.PHASEII ---
1115: Pt. AAOx4, vitals stable, breathing unlabored, no complaint of pain or nausea, x4 dermabond sites to ABD CDI, no active bleed noted, pt. tolerated sips of soda well, pt. ambulated to wheelchair with steady gait and no assist, no complications. Gave discharge instructions to the pt. and his ride, both verbalized understanding and had no further questions. Pt. left with all personal belongings.
== END 2025-05-31 11:15 | disposition home or self-care (01) ==
PROVIDERS: PCP Nurse Practitioner Family; Referring Provider Surgery; Visit Provider Surgery
PROC: 0FT44ZZ Resection of Gallbladder, Percutaneous Endoscopic Approach (ICD-10-PCS; CPT 47562; principal; 2025-05-31 08:30)
DX: K80.10 Calculus of gallbladder with chronic cholecystitis without obstruction (principal); K82.A1 Gangrene of gallbladder in cholecystitis; Z01.812 Encounter for preprocedural laboratory examination; I44.4 Left anterior fascicular block; E11.9 Type 2 diabetes mellitus without complications; I10 Essential (primary) hypertension; Z79.84 Long term (current) use of oral hypoglycemic drugs; Z79.899 Other long term (current) drug therapy
CPT/HCPCS: 47562; 36415; 80053; 85025; 93005; A4217; A4649; J0131; J0461; J0694; J1100; J2250; J2371; J2405; J2704; J3010; J3490; A9270